=== PATIENT | female | born 1985 | race Two or more races ===

== ENCOUNTER 2023-09-20 16:18 | Emergency (ER) | payer OTHER ==
[~2023-09-20] VITALS: Ht 154.9 cm; Wt 68.9 kg
[2023-09-20] MEDS ORDERED: NAPR-1164 PO (16:34)
[2023-09-20] MEDS ORDERED: DIAZ5TAB PO (16:34)
[2023-09-20 17:13] VITALS: BP 111/69; TEMP 98; O2SAT 96
== END 2023-09-20 17:13 | disposition home or self-care (01) ==
LOC: ER 16:18
DX: S16.1XXA Strain of muscle, fascia and tendon at neck level, initial encounter (principal); Z87.39 Personal history of other diseases of the musculoskeletal system and connective tissue; X50.1XXA Overexertion from prolonged static or awkward postures, initial encounter; X50.9XXA Other and unspecified overexertion or strenuous movements or postures, initial encounter; Y93.89 Activity, other specified; Y92.89 Other specified places as the place of occurrence of the external cause; Y99.8 Other external cause status